=== PATIENT | male | born 1935 | race Asian ===

== ENCOUNTER 2022-09-26 16:10 | Inpatient (IN) | payer MEDICARE, OTHER ==
[~2022-09-26] VITALS: Ht 170.2 cm; Wt 67.0 kg
[~2022-09-26 16:10] MED LIST: ALLO100T PO; AMLO-258 PO; ATOR10TA PO; BACI3.5O22; GABA-1216 PO; GUAIF10 PO; LEVO250T75 PO; RANI150T7 PO; RIVA20TA PO; TAMS-13 PO; TRAM-559 PO; VALP250S23 PO; [UNRECOGNIZED DRUG - CODE] PO
[2022-09-26] MEDS ORDERED: ONDANSETRON HCL 4 MG/2 ML VIAL IVP ONE (16:45)
[2022-09-26] MEDS ORDERED: MORPHINE SULFATE 2 MG/ML SYRINGE IVP ONE ×2 (16:45→18:15)
[2022-09-26] MEDS ORDERED: SODIUM CHLORIDE 0.9% 1,000 ML IV ONE (16:45)
[2022-09-26 17:16] LABS: BASOPHILS % (AUTO) 0.1 % (0.0-2.0); EOSINOPHILS % (AUTO) 3.8 % (1.0-6.0); HEMATOCRIT 41.1 % (41-53); HEMOGLOBIN 13.3 g/dL (13.5-17.5); LYMPHOCYTES # (AUTO) 0.9 K/uL (1.0-4.8); LYMPHOCYTES % (AUTO) 12.1 % (22.0-44.0); MEAN CORPUSCULAR HEMOGLOBIN 30.9 pg (26.0-34.0); MEAN CORPUSCULAR HGB CONC 32.2 G/dL (31.0-37.0); MEAN CORPUSCULAR VOLUME 96 fL (80-100); MONOCYTES # (AUTO) 0.9 K/uL (0.1-1.0); MONOCYTES % (AUTO) 12.9 % (2.0-9.0); NEUTROPHILS % (AUTO) 71.1 % (40.0-70.0); PLATELET COUNT (AUTO) 181 K/uL (150-450); RED BLOOD CELL COUNT(AUTO) 4.29 MIL/uL (4.50-5.90); RED CELL DISTRIBUTION WIDTH 16.1 % (11.5-14.5); WHITE BLOOD COUNT (AUTO) 7.1 K/uL (4.5-11.0)
[2022-09-26 17:26] LABS: CREATININE 5.86 mg/dL (0.60-1.30); POTASSIUM 4.1 mmol/L (3.5-5.1)
[2022-09-26 17:32] LABS: ALBUMIN 2.9 g/dL (3.4-5.0); BILIRUBIN,TOTAL 0.9 mg/dL (0.1-1.0); TOTAL PROTEIN, SERUM 7.7 g/dL (6.4-8.2)
[2022-09-26 17:33] LABS: TROPONIN I-HIGH SENSITIVITY 14 ng/L (<76)
[2022-09-26 18:01] LABS: APPEARANCE,URINE CLEAR (CLEAR); BILIRUBIN,URINE NEGATIVE (NEGATIVE); COLOR,URINE YELLOW (YELLOW); GLUCOSE, URINE (UA) NEGATIVE (NEGATIVE); KETONES,URINE NEGATIVE (NEGATIVE); LEUKOCYTE ESTERASE ,URINE NEGATIVE (NEGATIVE); NITRATE,URINE NEGATIVE (NEGATIVE); OCCULT BLOOD,URINE SMALL (NEGATIVE); PH,URINE 5.5 (5.0-8.0); PROTEIN,URINE 30-70 mg/dL (NEGATIVE); SPECIFIC GRAVITIY, URINE 1.018 (1.003-1.030); UROBILINOGEN,URINE <=1.0 mg/dL (<=1.0)
[2022-09-26 18:09] LABS: BACTERIA,URINE Rare /HPF (None Seen); SQUAMOUS EPITHELIAL CELL,UR Rare /LPF (None Seen); WBC,URINE 0-2 /HPF (0-5)
[2022-09-26] MEDS ORDERED: LORazepam 2 MG/ML VIAL IVP ONE (18:15)
[2022-09-26] MEDS ORDERED: ONDANSETRON HCL 4 MG/2 ML VIAL IVP PRN ×2 (19:45→21:15)
[2022-09-26] MEDS ORDERED: MORPHINE SULFATE 2 MG/ML SYRINGE IVP PRN (19:45)
[2022-09-26] MEDS ORDERED: FAMO20 PO (21:09)
[2022-09-26] MEDS ORDERED: LEVO5TAB13 PO (21:09)
[2022-09-26] MEDS ORDERED: APIX2.5T PO (21:09)
[2022-09-26] MEDS ORDERED: PRAV20TA4 PO (21:09)
[2022-09-26] MEDS ORDERED: DOCU100C33 PO (21:09)
[2022-09-26] MEDS ORDERED: LOSA1TAB37 PO (21:09)
[2022-09-26] MEDS ORDERED: ACETAMINOPHEN 325 MG TABLET PO PRN (21:15)
[2022-09-26] MEDS ORDERED: IPRATROPIUM BROMIDE 0.5 MG/2.5 ML NEB SOLUTION NEB PRN (21:15)
[2022-09-26] MEDS ORDERED: BISACODYL 10 MG RECTAL RECTAL SUPPOSITORY PR PRN (21:15)
[2022-09-26] MEDS ORDERED: MAGNESIUM HYDROXIDE SUSPENSION 30 ML UDCUP PO PRN (21:15)
[2022-09-26] MEDS ORDERED: ZOLPIDEM TARTRATE 5 MG TABLET PO PRN (21:15)
[2022-09-26] MEDS ORDERED: ALBUTEROL SULFATE 2.5 MG/0.5 ML NEB SOLUTION NEB PRN (21:15)
[2022-09-27] VITALS (7 sets, daily range): BP systolic 97–128; BP diastolic 45–74; PULSE 93–120; RESP 20–23; TEMP 97.4–98.2
[2022-09-27] MEDS ORDERED: SODIUM CHLORIDE 0.9% 250 ML IV ONE (00:15)
[2022-09-27] MEDS: LORazepam 2 MG/ML VIAL IVP PRN ×4 (00:31→22:47)
[2022-09-27] MEDS: DEXTROSE 5%-0.9% SODIUM CHL 1,000 ML IV SCH (01:30)
[2022-09-27] MEDS: PANTOPRAZOLE SODIUM 40 MG/VIAL IVP SCH (08:33)
[2022-09-27] MEDS: CefTRIAXone 1 GM/DEXTROSE 50 ML IV SCH (08:33)
[2022-09-27] MEDS: DOCUSATE SODIUM 100 MG CAPSULE PO SCH ×2 (08:34→21:00)
[2022-09-27] MEDS ORDERED: MetroNIDAZOLE 500 MG TABLET PO SCH (09:00)
[2022-09-27] MEDS: MetroNIDAZOLE 500 MG/NACL 100 ML IV SCH ×2 (11:52→22:47)
[2022-09-27 18:55] LABS: CALCIUM, TOTAL 8.9 mg/dL (8.8-10.5); CREATININE 3.64 mg/dL (0.60-1.30); POTASSIUM 4.3 mmol/L (3.5-5.1)
[2022-09-27 19:26] LABS: PHOSPHORUS 3.5 mg/dL (2.5-4.9)
[2022-09-27] MEDS ORDERED: HALOPERIDOL LACTATE 5 MG/ML VIAL IM ONE (20:45)
[2022-09-28] MEDS: LORazepam 2 MG/ML VIAL IVP PRN ×5 (03:30→21:39)
[2022-09-28 05:47] VITALS: BP 103/58; PULSE 86; RESP 19; TEMP 97.9
[2022-09-28] MEDS: CefTRIAXone 1 GM/DEXTROSE 50 ML IV SCH (06:13)
[2022-09-28] MEDS: MORPHINE SULFATE 2 MG/ML SYRINGE IVP PRN (06:13)
[2022-09-28 07:29] VITALS: BP 122/73; PULSE 90; RESP 18; TEMP 98
[2022-09-28 08:27] LABS: BASOPHILS % (AUTO) 0.2 % (0.0-2.0); EOSINOPHILS % (AUTO) 1.3 % (1.0-6.0); HEMATOCRIT 41.6 % (41-53); HEMOGLOBIN 13.5 g/dL (13.5-17.5); LYMPHOCYTES # (AUTO) 1.2 K/uL (1.0-4.8); LYMPHOCYTES % (AUTO) 14.9 % (22.0-44.0); MEAN CORPUSCULAR HEMOGLOBIN 31.8 pg (26.0-34.0); MEAN CORPUSCULAR HGB CONC 32.4 G/dL (31.0-37.0); MEAN CORPUSCULAR VOLUME 98 fL (80-100); MONOCYTES # (AUTO) 1.5 K/uL (0.1-1.0); MONOCYTES % (AUTO) 18.7 % (2.0-9.0); NEUTROPHILS # (AUTO) 5.2 K/uL (1.8-7.7); NEUTROPHILS % (AUTO) 64.9 % (40.0-70.0); PLATELET COUNT (AUTO) 151 K/uL (150-450); RED BLOOD CELL COUNT(AUTO) 4.24 MIL/uL (4.50-5.90); RED CELL DISTRIBUTION WIDTH 15.7 % (11.5-14.5); WHITE BLOOD COUNT (AUTO) 8.1 K/uL (4.5-11.0)
[2022-09-28 08:43] LABS: CALCIUM, TOTAL 8.9 mg/dL (8.8-10.5); CREATININE 2.85 mg/dL (0.60-1.30); MAGNESIUM 3.1 mg/dL (1.80-2.40); PHOSPHORUS 3.7 mg/dL (2.5-4.9); POTASSIUM 4.1 mmol/L (3.5-5.1)
[2022-09-28] MEDS: DOCUSATE SODIUM 100 MG CAPSULE PO SCH ×2 (08:58→20:20)
[2022-09-28] MEDS: PANTOPRAZOLE SODIUM 40 MG/VIAL IVP SCH (09:04)
[2022-09-28] MEDS: DEXTROSE 5%-0.9% SODIUM CHL 1,000 ML IV SCH ×2 (09:06→21:39)
[2022-09-28] MEDS: MetroNIDAZOLE 500 MG/NACL 100 ML IV SCH ×2 (10:41→22:44)
[2022-09-28 10:56] VITALS: BP 130/93; PULSE 107; RESP 18; TEMP 98.1
[2022-09-28 15:32] VITALS: BP 125/67; PULSE 101; RESP 18; TEMP 97.9
[2022-09-28 19:38] VITALS: BP 156/56; PULSE 103; RESP 20; TEMP 97.6
[2022-09-28 23:46] VITALS: BP 135/95; PULSE 120; RESP 20; TEMP 97.5
[2022-09-29] MEDS: LORazepam 2 MG/ML VIAL IVP PRN ×2 (01:40→20:42)
[2022-09-29] MEDS: MORPHINE SULFATE 2 MG/ML SYRINGE IVP PRN ×2 (02:46→16:40)
[2022-09-29 05:10] VITALS: BP 127/68; PULSE 108; RESP 20; TEMP 98
[2022-09-29] MEDS: CefTRIAXone 1 GM/DEXTROSE 50 ML IV SCH (06:23)
[2022-09-29 07:16] VITALS: BP 141/84; PULSE 103; RESP 20; TEMP 98
[2022-09-29 08:04] LABS: CALCIUM, TOTAL 8.8 mg/dL (8.8-10.5); CREATININE 1.75 mg/dL (0.60-1.30); MAGNESIUM 2.9 mg/dL (1.80-2.40); PHOSPHORUS 2.8 mg/dL (2.5-4.9); POTASSIUM 4.1 mmol/L (3.5-5.1)
[2022-09-29] MEDS: DOCUSATE SODIUM 100 MG CAPSULE PO SCH ×2 (09:00→20:48)
[2022-09-29] MEDS ORDERED: HALOPERIDOL LACTATE 5 MG/ML VIAL IM ONE (10:00)
[2022-09-29] MEDS: PANTOPRAZOLE SODIUM 40 MG/VIAL IVP SCH (10:14)
[2022-09-29] MEDS: DEXTROSE 5%-0.9% SODIUM CHL 1,000 ML IV SCH ×2 (10:18→15:39)
[2022-09-29] MEDS: MetroNIDAZOLE 500 MG/NACL 100 ML IV SCH ×2 (10:18→15:52)
[2022-09-29 11:16] VITALS: BP 116/47; PULSE 98; RESP 18; TEMP 98.1
[2022-09-29 11:41] LABS: TROPONIN I-HIGH SENSITIVITY 49 ng/L (<76)
[2022-09-29 16:30] VITALS: BP 130/72; PULSE 72; RESP 18; TEMP 97.8
[2022-09-29 19:12] LABS: BASOPHILS % (AUTO) 0.3 % (0.0-2.0); EOSINOPHILS % (AUTO) 0.3 % (1.0-6.0); HEMATOCRIT 47.4 % (41-53); HEMOGLOBIN 15.4 g/dL (13.5-17.5); LYMPHOCYTES # (AUTO) 1.3 K/uL (1.0-4.8); LYMPHOCYTES % (AUTO) 13.8 % (22.0-44.0); MEAN CORPUSCULAR HEMOGLOBIN 31.6 pg (26.0-34.0); MEAN CORPUSCULAR HGB CONC 32.5 G/dL (31.0-37.0); MEAN CORPUSCULAR VOLUME 97 fL (80-100); MONOCYTES # (AUTO) 1.1 K/uL (0.1-1.0); MONOCYTES % (AUTO) 12.2 % (2.0-9.0); NEUTROPHILS # (AUTO) 6.7 K/uL (1.8-7.7); NEUTROPHILS % (AUTO) 73.4 % (40.0-70.0); PLATELET COUNT (AUTO) 162 K/uL (150-450); RED BLOOD CELL COUNT(AUTO) 4.87 MIL/uL (4.50-5.90); RED CELL DISTRIBUTION WIDTH 16.1 % (11.5-14.5); WHITE BLOOD COUNT (AUTO) 9.1 K/uL (4.5-11.0)
[2022-09-29 19:49] VITALS: BP 141/78; PULSE 86; RESP 20; TEMP 97.8
[2022-09-30 00:16] VITALS: BP 158/79; PULSE 73; RESP 17; TEMP 97.7
[2022-09-30] MEDS: LORazepam 2 MG/ML VIAL IVP PRN ×3 (02:40→22:32)
[2022-09-30 03:03] VITALS: BP 143/80; PULSE 97; RESP 19; TEMP 97.6
[2022-09-30] MEDS: MetroNIDAZOLE 500 MG/NACL 100 ML IV SCH ×2 (04:55→15:46)
[2022-09-30] MEDS: DEXTROSE 5%-0.9% SODIUM CHL 1,000 ML IV SCH (06:22)
[2022-09-30] MEDS: CefTRIAXone 1 GM/DEXTROSE 50 ML IV SCH (06:24)
[2022-09-30 07:23] LABS: EOSINOPHILS % (AUTO) 0.2 % (1.0-6.0); HEMATOCRIT 42.8 % (41-53); HEMOGLOBIN 13.9 g/dL (13.5-17.5); LYMPHOCYTES # (AUTO) 1.2 K/uL (1.0-4.8); MEAN CORPUSCULAR HEMOGLOBIN 31.9 pg (26.0-34.0); MEAN CORPUSCULAR HGB CONC 32.5 G/dL (31.0-37.0); MEAN CORPUSCULAR VOLUME 98 fL (80-100); MONOCYTES # (AUTO) 1.2 K/uL (0.1-1.0); MONOCYTES % (AUTO) 10.7 % (2.0-9.0); NEUTROPHILS # (AUTO) 8.4 K/uL (1.8-7.7); NEUTROPHILS % (AUTO) 77.1 % (40.0-70.0); PLATELET COUNT (AUTO) 154 K/uL (150-450); RED BLOOD CELL COUNT(AUTO) 4.36 MIL/uL (4.50-5.90); RED CELL DISTRIBUTION WIDTH 16.5 % (11.5-14.5); WHITE BLOOD COUNT (AUTO) 10.9 K/uL (4.5-11.0)
[2022-09-30 07:36] LABS: MAGNESIUM 2.5 mg/dL (1.80-2.40); PHOSPHORUS 2.6 mg/dL (2.5-4.9)
[2022-09-30 07:38] LABS: CALCIUM, TOTAL 8.9 mg/dL (8.8-10.5); CREATININE 1.55 mg/dL (0.60-1.30); POTASSIUM 4.5 mmol/L (3.5-5.1)
[2022-09-30] MEDS: PANTOPRAZOLE SODIUM 40 MG/VIAL IVP SCH (08:02)
[2022-09-30 08:14] VITALS: BP 147/99; PULSE 108; RESP 18; TEMP 98
[2022-09-30] MEDS: DOCUSATE SODIUM 100 MG CAPSULE PO SCH ×2 (09:00→20:29)
[2022-09-30] MEDS: APIXABAN 2.5 MG TABLET PO SCH ×2 (09:49→20:29)
[2022-09-30] MEDS: METOPROLOL TARTRATE 25 MG TABLET PO SCH ×2 (09:49→20:29)
[2022-09-30] MEDS: DEXTROSE 5%-WATER 1,000 ML IV SCH (10:44)
[2022-09-30 11:31] VITALS: BP 114/79; PULSE 93; RESP 18; TEMP 97.9
[2022-09-30 15:02] VITALS: BP 151/69; PULSE 82; RESP 18; TEMP 97.8
[2022-09-30 19:40] VITALS: BP 109/76; PULSE 99; RESP 18; TEMP 98.1
[2022-09-30] MEDS: OLANZapine 5 MG TABLET PO SCH (20:30)
[2022-10-01 00:06] VITALS: BP 131/75; PULSE 93; RESP 20; TEMP 87.8
[2022-10-01] MEDS: MetroNIDAZOLE 500 MG/NACL 100 ML IV SCH ×2 (03:53→16:21)
[2022-10-01 03:54] VITALS: BP 133/74; PULSE 94; RESP 20; TEMP 98.5
[2022-10-01] MEDS: CefTRIAXone 1 GM/DEXTROSE 50 ML IV SCH (06:44)
[2022-10-01] MEDS: DEXTROSE 5%-WATER 1,000 ML IV SCH ×2 (06:45→18:06)
[2022-10-01 07:33] LABS: CALCIUM, TOTAL 8.3 mg/dL (8.8-10.5); CREATININE 1.53 mg/dL (0.60-1.30); MAGNESIUM 2.2 mg/dL (1.80-2.40); PHOSPHORUS 2.9 mg/dL (2.5-4.9); POTASSIUM 4.1 mmol/L (3.5-5.1)
[2022-10-01] MEDS: PANTOPRAZOLE SODIUM 40 MG/VIAL IVP SCH (08:28)
[2022-10-01] MEDS: HYDROCODONE/ACETAMINOPHEN 5-325 MG TABLET PO PRN ×3 (08:28→18:06)
[2022-10-01] MEDS: DOCUSATE SODIUM 100 MG CAPSULE PO SCH ×2 (08:29→20:16)
[2022-10-01] MEDS: METOPROLOL TARTRATE 25 MG TABLET PO SCH ×2 (08:29→20:16)
[2022-10-01] MEDS: OLANZapine 5 MG TABLET PO SCH ×3 (08:29→20:16)
[2022-10-01] MEDS: APIXABAN 2.5 MG TABLET PO SCH ×2 (08:29→20:16)
[2022-10-01] MEDS ORDERED: *CLINICAL-PERIPHERAL PARENTERAL NUTRITION DOSING CLINICAL ONE (11:45)
[2022-10-01] MEDS: LORazepam 2 MG/ML VIAL IVP PRN ×2 (12:36→21:04)
[2022-10-01] MEDS: AMINO ACIDS 4.25%/D5W 1,000 ML IV SCH (14:22)
[2022-10-01 19:32] VITALS: BP 109/72; PULSE 110; RESP 20; TEMP 97.5
[2022-10-02 01:00] VITALS: BP 141/55; PULSE 74; RESP 20; TEMP 97.7
[2022-10-02] MEDS: LORazepam 2 MG/ML VIAL IVP PRN ×3 (02:04→21:47)
[2022-10-02] MEDS: MetroNIDAZOLE 500 MG/NACL 100 ML IV SCH ×2 (04:26→15:26)
[2022-10-02] MEDS: DEXTROSE 5%-WATER 1,000 ML IV SCH ×2 (04:32→18:51)
[2022-10-02 04:40] VITALS: BP 138/60; PULSE 106; RESP 20; TEMP 97.7
[2022-10-02] MEDS: CefTRIAXone 1 GM/DEXTROSE 50 ML IV SCH (06:18)
[2022-10-02 07:42] LABS: ALBUMIN 2.2 g/dL (3.4-5.0); BILIRUBIN,TOTAL 1.3 mg/dL (0.1-1.0); CALCIUM, TOTAL 7.9 mg/dL (8.8-10.5); CREATININE 1.34 mg/dL (0.60-1.30); TOTAL PROTEIN, SERUM 6.5 g/dL (6.4-8.2)
[2022-10-02] MEDS: AMINO ACIDS 4.25%/D5W 1,000 ML IV SCH (08:21)
[2022-10-02] MEDS: APIXABAN 2.5 MG TABLET PO SCH ×2 (08:22→21:47)
[2022-10-02] MEDS: DOCUSATE SODIUM 100 MG CAPSULE PO SCH ×2 (08:22→21:00)
[2022-10-02] MEDS: METOPROLOL TARTRATE 25 MG TABLET PO SCH ×2 (08:22→21:47)
[2022-10-02] MEDS: PANTOPRAZOLE SODIUM 40 MG/VIAL IVP SCH (08:22)
[2022-10-02] MEDS: OLANZapine 5 MG TABLET PO SCH ×3 (08:23→21:47)
[2022-10-02] MEDS: HYDROCODONE/ACETAMINOPHEN 5-325 MG TABLET PO PRN ×3 (08:26→19:25)
[2022-10-02 08:37] VITALS: BP 138/80; PULSE 98; RESP 18; TEMP 98.6
[2022-10-02 08:53] LABS: MAGNESIUM 2.1 mg/dL (1.80-2.40); PHOSPHORUS 3.6 mg/dL (2.5-4.9)
[2022-10-02 11:10] VITALS: BP 140/73; PULSE 96; RESP 18; TEMP 98
[2022-10-02 15:34] VITALS: BP 119/68; PULSE 96; RESP 20; TEMP 98.1
[2022-10-02 19:20] VITALS: BP 122/66; PULSE 97; RESP 22; TEMP 97.5
[2022-10-03] VITALS (7 sets, daily range): BP systolic 122–152; BP diastolic 53–87; PULSE 67–110; RESP 18–24; TEMP 97.9–98.8; O2SAT 96
[2022-10-03] MEDS: MetroNIDAZOLE 500 MG/NACL 100 ML IV SCH ×2 (03:38→16:49)
[2022-10-03] MEDS: LORazepam 2 MG/ML VIAL IVP PRN ×3 (03:39→21:30)
[2022-10-03] MEDS: AMINO ACIDS 4.25%/D5W 1,000 ML IV SCH (04:51)
[2022-10-03 05:53] LABS: ABG BASE EXCESS -8.2 mmol/L (-2.0-3.0); ABG CARBOXYHEMOGLOBIN 0.9 % (0.0-1.5); ABG HCO3 18.8 mmol/L (22.0-26.0); ABG METHEMOGLOBIN 0.3 % (0.0-1.5); ABG OXYGEN CONTENT 17.6 mL/dL (15.0-23.0); ABG OXYGEN SATURATION 97.9 % (95.0-98.0); ABG OXYHEMOGLOBIN 96.7 % (94.0-100.0); ABG PCO2 31 mmHg (35-45); ABG PH 7.365 (7.35-7.450); ABG TOTAL HEMOGLOBIN 12.8 G/dL (12.0-18.0); SOURCE, BLOOD GAS ARTERIAL; TEMPERATURE, FAHRENHEIT, BG 98.6 FAHREN (96.0-98.6)
[2022-10-03 05:54] LABS: ALLEN TEST, BLOOD GAS Positive; O2 DEVICE,BLOOD GAS AEROSOL MASK (ROOM AIR); SITE, BLOOD GAS LFT RADIAL
[2022-10-03] MEDS: CefTRIAXone 1 GM/DEXTROSE 50 ML IV SCH (07:03)
[2022-10-03 07:50] LABS: ANION GAP 8 mmol/L (8-16); CALCIUM, TOTAL 7.8 mg/dL (8.8-10.5); CARBON DIOXIDE 23 mmol/L (22-29); CHLORIDE 112 mmol/L (98-107); CREATININE 1.12 mg/dL (0.60-1.30); GLOMERULAR FILTR. RATE CALC > 60 mL/min (>60); GLUCOSE,RANDOM 130 mg/dL (70-110); POTASSIUM 4.2 mmol/L (3.5-5.1); SODIUM SERUM 143 mmol/L (136-145); UREA NITROGEN, BLOOD 38 mg/dL (7-18)
[2022-10-03] MEDS: METOPROLOL TARTRATE 25 MG TABLET PO SCH ×2 (09:00→21:17)
[2022-10-03] MEDS: APIXABAN 2.5 MG TABLET PO SCH ×2 (09:00→21:17)
[2022-10-03] MEDS: OLANZapine 5 MG TABLET PO SCH ×3 (09:00→21:17)
[2022-10-03] MEDS: DOCUSATE SODIUM 100 MG CAPSULE PO SCH ×2 (09:00→21:17)
[2022-10-03 09:27] LABS: GLUCOMETER DEV NAME(LOC) 5S.1B; GLUCOSE,POINT OF CARE 108 MG/DL (70-110)
[2022-10-03] MEDS: PANTOPRAZOLE SODIUM 40 MG/VIAL IVP SCH (09:34)
[2022-10-03] MEDS: DEXTROSE 5%-WATER 1,000 ML IV SCH (11:38)
[2022-10-03] MEDS: QUEtiapine FUMARATE 25 MG TABLET PO SCH (21:17)
[2022-10-04] VITALS (7 sets, daily range): BP systolic 102–142; BP diastolic 61–71; PULSE 92–100; RESP 19–20; TEMP 98–98.9
[2022-10-04] MEDS: AMINO ACIDS 4.25%/D5W 1,000 ML IV SCH (00:48)
[2022-10-04] MEDS: LORazepam 2 MG/ML VIAL IVP PRN ×2 (02:32→21:08)
[2022-10-04] MEDS: MetroNIDAZOLE 500 MG/NACL 100 ML IV SCH ×2 (03:43→17:08)
[2022-10-04] MEDS: CefTRIAXone 1 GM/DEXTROSE 50 ML IV SCH (06:14)
[2022-10-04 08:38] LABS: CALCIUM, TOTAL 8.3 mg/dL (8.8-10.5); CREATININE 1.22 mg/dL (0.60-1.30); PHOSPHORUS 2.8 mg/dL (2.5-4.9); POTASSIUM 4.2 mmol/L (3.5-5.1)
[2022-10-04] MEDS: PANTOPRAZOLE SODIUM 40 MG/VIAL IVP SCH (09:22)
[2022-10-04] MEDS: OLANZapine 5 MG TABLET PO SCH ×3 (09:22→21:08)
[2022-10-04] MEDS: QUEtiapine FUMARATE 25 MG TABLET PO SCH ×3 (09:23→21:08)
[2022-10-04] MEDS: DOCUSATE SODIUM 100 MG CAPSULE PO SCH ×2 (09:23→21:08)
[2022-10-04] MEDS: APIXABAN 2.5 MG TABLET PO SCH ×2 (09:23→21:08)
[2022-10-04] MEDS: METOPROLOL TARTRATE 25 MG TABLET PO SCH ×2 (09:23→21:08)
[2022-10-04] MEDS ORDERED: AMINO ACIDS IV SCH ×3 (11:30→22:00)
[2022-10-04] MEDS ORDERED: SODIUM ACETATE IV SCH ×3 (11:30→22:00)
[2022-10-04] MEDS ORDERED: [UNRECOGNIZED DRUG - OTHER] IV SCH ×2 (11:30→12:00)
[2022-10-04] MEDS ORDERED: SODIUM CHLORIDE 0.9% 250 ML IV ONE (17:12)
[2022-10-04] MEDS ORDERED: [UNRECOGNIZED DRUG - OTHER] IV SCH (22:00)
[2022-10-05] MEDS: LORazepam 2 MG/ML VIAL IVP PRN ×2 (01:14→21:56)
[2022-10-05 03:34] VITALS: BP 117/70; PULSE 49; RESP 20; TEMP 98.4
[2022-10-05] MEDS: MetroNIDAZOLE 500 MG/NACL 100 ML IV SCH ×2 (03:46→16:28)
[2022-10-05] MEDS: CefTRIAXone 1 GM/DEXTROSE 50 ML IV SCH (06:33)
[2022-10-05 07:12] LABS: CALCIUM, TOTAL 8.3 mg/dL (8.8-10.5); CREATININE 1.32 mg/dL (0.60-1.30); PHOSPHORUS 2.7 mg/dL (2.5-4.9); POTASSIUM 4.2 mmol/L (3.5-5.1)
[2022-10-05 07:29] VITALS: BP 118/80; PULSE 50; RESP 18; TEMP 98
[2022-10-05] MEDS: APIXABAN 2.5 MG TABLET PO SCH ×2 (08:12→20:40)
[2022-10-05] MEDS: DOCUSATE SODIUM 100 MG CAPSULE PO SCH ×2 (08:12→20:41)
[2022-10-05] MEDS: QUEtiapine FUMARATE 25 MG TABLET PO SCH ×3 (08:12→20:40)
[2022-10-05] MEDS: OLANZapine 5 MG TABLET PO SCH ×3 (08:12→20:40)
[2022-10-05] MEDS: PANTOPRAZOLE SODIUM 40 MG/VIAL IVP SCH (08:22)
[2022-10-05] MEDS: METOPROLOL TARTRATE 25 MG TABLET PO SCH ×2 (09:00→20:40)
[2022-10-05 11:44] VITALS: BP 98/62; PULSE 89; RESP 20; TEMP 98.5
[2022-10-05] MEDS: DEXTROSE 5%-WATER 1,000 ML IV SCH (12:06)
[2022-10-05 15:50] VITALS: BP 112/90; PULSE 98; RESP 18; TEMP 98.8
[2022-10-05] MEDS ORDERED: HYDROCODONE/ACETAMINOPHEN 5-325 MG TABLET PO PRN ×2 (17:45)
[2022-10-05] MEDS ORDERED: SODIUM CHLORIDE 0.9% 100 ML ONE (18:20)
[2022-10-05] MEDS ORDERED: IOHEXOL 350 MG/ML 100 ML VIAL ONE (18:20)
[2022-10-05 19:33] VITALS: BP 104/56; PULSE 101; RESP 20; TEMP 98.6
[2022-10-05] MEDS ORDERED: [UNRECOGNIZED DRUG - REMARK] IV SCH ×5 (22:00)
[2022-10-06 00:35] VITALS: BP 115/61; PULSE 93; RESP 18; TEMP 98.7
[2022-10-06] MEDS: MetroNIDAZOLE 500 MG/NACL 100 ML IV SCH (03:40)
[2022-10-06 05:10] VITALS: BP 113/47; PULSE 92; RESP 19; TEMP 98.7
[2022-10-06 07:18] LABS: CALCIUM, TOTAL 8.6 mg/dL (8.8-10.5); CREATININE 1.32 mg/dL (0.60-1.30); MAGNESIUM 2.4 mg/dL (1.80-2.40); PHOSPHORUS 2.9 mg/dL (2.5-4.9); POTASSIUM 4.4 mmol/L (3.5-5.1)
[2022-10-06 07:38] VITALS: BP 100/63; PULSE 106; RESP 18; TEMP 98.1
[2022-10-06] MEDS: METOPROLOL TARTRATE 25 MG TABLET PO SCH ×2 (08:35→21:07)
[2022-10-06] MEDS: APIXABAN 2.5 MG TABLET PO SCH ×2 (08:35→21:07)
[2022-10-06] MEDS: QUEtiapine FUMARATE 25 MG TABLET PO SCH ×3 (08:36→21:08)
[2022-10-06] MEDS: DOCUSATE SODIUM 100 MG CAPSULE PO SCH ×2 (08:36→21:07)
[2022-10-06] MEDS: PANTOPRAZOLE SODIUM 40 MG/VIAL IVP SCH (08:36)
[2022-10-06] MEDS: OLANZapine 5 MG TABLET PO SCH ×3 (08:36→21:07)
[2022-10-06 11:13] VITALS: BP 142/75; PULSE 93; RESP 18; TEMP 98.7
[2022-10-06 11:16] LABS: BASOPHILS % (AUTO) 0.7 % (0.0-2.0); EOSINOPHILS % (AUTO) 1.8 % (1.0-6.0); HEMATOCRIT 35.1 % (41-53); HEMOGLOBIN 10.6 g/dL (13.5-17.5); LYMPHOCYTES # (AUTO) 1.3 K/uL (1.0-4.8); LYMPHOCYTES % (AUTO) 12.2 % (22.0-44.0); MEAN CORPUSCULAR HEMOGLOBIN 30.7 pg (26.0-34.0); MEAN CORPUSCULAR HGB CONC 30.1 G/dL (31.0-37.0); MEAN CORPUSCULAR VOLUME 102 fL (80-100); MONOCYTES # (AUTO) 1.2 K/uL (0.1-1.0); MONOCYTES % (AUTO) 11.2 % (2.0-9.0); NEUTROPHILS # (AUTO) 8.2 K/uL (1.8-7.7); NEUTROPHILS % (AUTO) 74.1 % (40.0-70.0); PLATELET COUNT (AUTO) 198 K/uL (150-450); RED BLOOD CELL COUNT(AUTO) 3.44 MIL/uL (4.50-5.90); RED CELL DISTRIBUTION WIDTH 17.1 % (11.5-14.5); WHITE BLOOD COUNT (AUTO) 11.1 K/uL (4.5-11.0)
[2022-10-06] MEDS: DEXTROSE 5%-WATER 1,000 ML IV SCH (13:06)
[2022-10-06] MEDS ORDERED: SODIUM CHLORIDE 0.9% 100 ML ONE (13:52)
[2022-10-06] MEDS ORDERED: IOHEXOL 350 MG/ML 100 ML VIAL ONE (13:52)
[2022-10-06] MEDS: LORazepam 2 MG/ML VIAL IVP PRN ×2 (14:20→22:07)
[2022-10-06] MEDS: SODIUM BICARBONATE 50 MEQ in DEXTROSE 5%-WATER 1,000 ML IV SCH (15:24)
[2022-10-06 16:30] VITALS: BP 98/55; PULSE 100; RESP 20; TEMP 97.7
[2022-10-06 20:31] VITALS: BP 95/59; PULSE 72; RESP 18; TEMP 98.9
[2022-10-07] VITALS (7 sets, daily range): BP systolic 99–158; BP diastolic 42–79; PULSE 68–108; RESP 18–19; TEMP 97.6–100.4
[2022-10-07] MEDS: LORazepam 2 MG/ML VIAL IVP PRN (06:41)
[2022-10-07 07:13] LABS: CALCIUM, TOTAL 8.3 mg/dL (8.8-10.5); CREATININE 1.34 mg/dL (0.60-1.30); MAGNESIUM 2.2 mg/dL (1.80-2.40); PHOSPHORUS 2.5 mg/dL (2.5-4.9); POTASSIUM 3.9 mmol/L (3.5-5.1)
[2022-10-07] MEDS: PANTOPRAZOLE SODIUM 40 MG/VIAL IVP SCH (08:56)
[2022-10-07] MEDS: QUEtiapine FUMARATE 25 MG TABLET PO SCH ×3 (08:56→21:00)
[2022-10-07] MEDS: APIXABAN 2.5 MG TABLET PO SCH ×2 (08:56→21:00)
[2022-10-07] MEDS: METOPROLOL TARTRATE 25 MG TABLET PO SCH ×2 (08:56→21:00)
[2022-10-07] MEDS: DOCUSATE SODIUM 100 MG CAPSULE PO SCH ×2 (08:56→21:00)
[2022-10-07] MEDS: SODIUM BICARBONATE 50 MEQ in DEXTROSE 5%-WATER 1,000 ML IV SCH (11:18)
[2022-10-08 04:55] VITALS: BP 109/65; PULSE 103; RESP 19; TEMP 98.9
[2022-10-08 06:54] LABS: CALCIUM, TOTAL 8.4 mg/dL (8.8-10.5); CREATININE 1.31 mg/dL (0.60-1.30); MAGNESIUM 2.3 mg/dL (1.80-2.40); PHOSPHORUS 2.9 mg/dL (2.5-4.9)
[2022-10-08 07:20] VITALS: BP 115/71; PULSE 94; RESP 19; TEMP 98
[2022-10-08] MEDS: APIXABAN 2.5 MG TABLET PO SCH ×2 (09:17→21:26)
[2022-10-08] MEDS: METOPROLOL TARTRATE 25 MG TABLET PO SCH ×2 (09:17→21:26)
[2022-10-08] MEDS: PANTOPRAZOLE SODIUM 40 MG/VIAL IVP SCH (09:17)
[2022-10-08] MEDS: DOCUSATE SODIUM 100 MG CAPSULE PO SCH ×2 (09:17→21:26)
[2022-10-08] MEDS: QUEtiapine FUMARATE 25 MG TABLET PO SCH ×3 (09:17→21:26)
[2022-10-08] MEDS: SODIUM BICARBONATE 50 MEQ in DEXTROSE 5%-WATER 1,000 ML IV SCH (09:18)
[2022-10-08] MEDS ORDERED: METO25 PO (10:50)
[2022-10-08 11:49] VITALS: BP 101/51; PULSE 73; RESP 18; TEMP 98.1
[2022-10-08 15:18] VITALS: BP 97/55; PULSE 86; RESP 19; TEMP 98.2
[2022-10-08 19:48] VITALS: BP 111/52; PULSE 99; RESP 19; TEMP 98
[2022-10-08 23:57] VITALS: BP 126/71; PULSE 102; RESP 19; TEMP 98.4
[2022-10-09 03:35] VITALS: BP 118/56; PULSE 108; RESP 19; TEMP 98.1
[2022-10-09] MEDS: SODIUM BICARBONATE 50 MEQ in DEXTROSE 5%-WATER 1,000 ML IV SCH (04:19)
[2022-10-09 06:55] LABS: CALCIUM, TOTAL 8.4 mg/dL (8.8-10.5); CREATININE 1.37 mg/dL (0.60-1.30); MAGNESIUM 2.4 mg/dL (1.80-2.40); PHOSPHORUS 2.8 mg/dL (2.5-4.9); POTASSIUM 3.7 mmol/L (3.5-5.1)
[2022-10-09 07:35] VITALS: BP 115/69; PULSE 102; RESP 18; TEMP 98
[2022-10-09] MEDS: QUEtiapine FUMARATE 25 MG TABLET PO SCH ×2 (08:04→16:00)
[2022-10-09] MEDS: DOCUSATE SODIUM 100 MG CAPSULE PO SCH (08:04)
[2022-10-09] MEDS: APIXABAN 2.5 MG TABLET PO SCH (08:04)
[2022-10-09] MEDS: METOPROLOL TARTRATE 25 MG TABLET PO SCH (08:04)
[2022-10-09] MEDS ORDERED: PANTOPRAZOLE SODIUM 40 MG DR TABLET PO SCH (09:00)
[2022-10-09 11:37] VITALS: BP 102/58; PULSE 96; RESP 18; TEMP 98
[2022-10-09] MEDS ORDERED: DEXTROSE 5%-WATER 1,000 ML IV SCH (12:45)
[2022-10-09 15:34] VITALS: BP 112/69; PULSE 99; RESP 18; TEMP 98
== END 2022-10-09 18:52 | disposition hospice, home (50) | DRG 388 ==
LOC: EMS 16:18 → 5S 21:00
PROVIDERS: ADMIT Hospitalist; ATTEND Hospitalist
PROC: 05H933Z Insertion of Infusion Device into Right Brachial Vein, Percutaneous Approach (ICD-10-PCS; principal; 2022-09-29)
DX: K56.609 Unspecified intestinal obstruction, unspecified as to partial versus complete obstruction (principal); E43 Unspecified severe protein-calorie malnutrition; I48.19 Other persistent atrial fibrillation; N17.9 Acute kidney failure, unspecified; E87.0 Hyperosmolality and hypernatremia; I47.20 Ventricular tachycardia, unspecified; E87.20 Acidosis, unspecified; K56.7 Ileus, unspecified; K52.9 Noninfective gastroenteritis and colitis, unspecified; I71.43 Infrarenal abdominal aortic aneurysm, without rupture; I48.91 Unspecified atrial fibrillation; I12.9 Hypertensive chronic kidney disease with stage 1 through stage 4 chronic kidney disease, or unspecified chronic kidney disease; N18.2 Chronic kidney disease, stage 2 (mild); K21.9 Gastro-esophageal reflux disease without esophagitis; M10.9 Gout, unspecified; E78.00 Pure hypercholesterolemia, unspecified; F41.9 Anxiety disorder, unspecified; N40.0 Benign prostatic hyperplasia without lower urinary tract symptoms; G47.00 Insomnia, unspecified; R31.9 Hematuria, unspecified; G89.29 Other chronic pain; M19.90 Unspecified osteoarthritis, unspecified site; M54.50 Low back pain, unspecified; F03.90 Unspecified dementia, unspecified severity, without behavioral disturbance, psychotic disturbance, mood disturbance, and anxiety; I51.7 Cardiomegaly; R62.7 Adult failure to thrive; R31.29 Other microscopic hematuria; Z68.23 Body mass index [BMI] 23.0-23.9, adult; Z79.01 Long term (current) use of anticoagulants; Z79.899 Other long term (current) drug therapy; Z91.199 Patient's noncompliance with other medical treatment and regimen due to unspecified reason
CPT/HCPCS: 36245; 36569; 71045; 74018; 74176; 74177; 76770; 76937; 80048; 80053; 81001; 82805; 82962; 83690; 83735; 84100; 84484; 85025; 87040; 92526; 92610; 93005; 93306; 94640; 97167; 99285; C9113; J0696; J1630; J2060; J2270; J2405; J3490; J7030; J7042; J7050; J7060; J7070; Q9967; 36415-L1; 36415-TC; J7613